=== PATIENT | female | born 1975 | race Two or more races ===

== ENCOUNTER 2017-09-18 03:47 | Emergency (ER) | payer OTHER ==
[~2017-09-18] VITALS: Ht 154.9 cm; Wt 95.3 kg
[2017-09-18] MEDS ORDERED: LISINOPRIL5 MG (04:07)
[2017-09-18] MEDS ORDERED: ZESTRIL5 MG PO (04:08)
== END 2017-09-18 12:29 | disposition home or self-care (01) ==
LOC: ER 03:47
DX: T78.3XXA Angioneurotic edema, initial encounter (principal)

== ENCOUNTER 2019-03-30 09:51 | Emergency (ER) | payer OTHER ==
[~2019-03-30] VITALS: Ht 154.9 cm; Wt 102.1 kg
[~2019-03-30 09:51] MED LIST: LISINOPRIL5 MG; ZESTRIL5 MG PO
== END 2019-03-30 15:52 | disposition home or self-care (01) ==
LOC: ER 09:51
DX: K52.9 Noninfective gastroenteritis and colitis, unspecified (principal)